=== PATIENT | male | born 1945 | race Caucasian/White ===

== ENCOUNTER 2019-06-11 19:50 | Emergency (ER) | payer OTHER ==
[~2019-06-11] VITALS: Ht 188 cm; Wt 105.2 kg
[2019-06-11] MEDS ORDERED: GLIPIZIDE XL10 MG (20:30)
[2019-06-11] MEDS ORDERED: NABUMETONE500 MG (20:30)
[2019-06-11] MEDS ORDERED: METFORMIN HCL500 M3 (20:30)
[2019-06-11] MEDS ORDERED: ATORVASTATIN CA10 MG (20:30)
[2019-06-11] MEDS ORDERED: NEURONTIN800 MG (20:30)
[2019-06-11] MEDS ORDERED: SINGULAIR 10MG10 MG (20:31)
[2019-06-11] MEDS ORDERED: ZIAC 5-6.25 MG1 EACH (20:31)
[2019-06-11] MEDS ORDERED: SKELAXIN800 MG PO (23:34)
[2019-06-11] MEDS ORDERED: CELEBREX100 MG PO (23:34)
== END 2019-06-11 23:31 | disposition home or self-care (01) ==
LOC: ER 19:50
DX: M54.5 Low back pain (principal)

== ENCOUNTER 2022-07-10 19:47 | Emergency (ER) | payer OTHER ==
[~2022-07-10] VITALS: Ht 172.7 cm; Wt 86.2 kg
[~2022-07-10 19:47] MED LIST: ATORVASTATIN CA10 MG; CELEBREX100 MG PO; GLIPIZIDE XL10 MG; METFORMIN HCL500 M3; NABUMETONE500 MG; NEURONTIN800 MG; SINGULAIR 10MG10 MG; SKELAXIN800 MG PO; ZIAC 5-6.25 MG1 EACH
== END 2022-07-11 03:11 | disposition home or self-care (01) ==
LOC: ER 19:47
DX: S01.82XA Laceration with foreign body of other part of head, initial encounter (principal); W18.30XA Fall on same level, unspecified, initial encounter; Y93.9 Activity, unspecified; Y92.019 Unspecified place in single-family (private) house as the place of occurrence of the external cause; M12.541 Traumatic arthropathy, right hand; E11.9 Type 2 diabetes mellitus without complications; Z79.84 Long term (current) use of oral hypoglycemic drugs

== ENCOUNTER 2022-07-17 14:50 | Emergency (ER) | payer OTHER ==
[~2022-07-17] VITALS: Ht 190.5 cm; Wt 96.2 kg
== END 2022-07-17 20:12 | disposition home or self-care (01) ==
LOC: ER 14:50
DX: Z48.02 Encounter for removal of sutures (principal)